=== PATIENT | male | born 1990 | race Caucasian/White ===

== ENCOUNTER 2018-11-16 18:53 | Emergency (ER) | payer SELFPAY ==
[~2018-11-16] VITALS: Ht 188 cm; Wt 56.8 kg
[2018-11-16 18:56] VITALS: Ht 188 cm; Wt 56.8 kg
[2018-11-16 19:17] LABS: BASOPHILS 0.1 % (0-2); EOSINOPHILS 0.4 % (0-7); HEMATOCRIT 42.7 % (42.0-54.0); HEMOGLOBIN 15.5 g/dL (13.5-17.5); IMMATURE GRANULOCYTES 0.3 % (0-5); LYMPHOCYTES 8.7 % (15-50); MCH 31.4 pg (26.0-34.0); MCHC 36.3 g/dL (31.0-37.0); MCV 86.6 fL (80.0-100.0); MEAN PLATELET VOLUME 10.3 fL (7.4-10.4); MONOCYTES 7.3 % (2-11); NEUTROPHILS 83.2 % (40-80); PLATELET COUNT 152 10x3/uL (130-400); RBC 4.93 10x6/uL (4.20-6.10); RDW 12.3 % (11.5-14.5); WBC 14.6 10x3/uL (4.8-10.8)
[2018-11-16 19:39] LABS: APPEARANCE CLEAR (CLEAR); BILIRUBIN NEGATIVE (NEGATIVE); COLOR YELLOW (YELLOW); GLUCOSE NEGATIVE (NEGATIVE); KETONE LARGE mg/dL (NEGATIVE); NITRITE NEGATIVE (NEGATIVE); PROTEIN TRACE mg/dL (NEGATIVE); SPECIFIC GRAVITY 1.015 (1.005-1.020); UROBILINOGEN NORMAL (NORMAL)
[2018-11-16 19:42] LABS: BACTERIA FEW /hpf (NONE SEEN); MUCUS >1+ /lpf (NONE SEEN); RED CELLS - URINE OCC /hpf (0-5); WHITE CELLS - URINE 0-5 /hpf (0-5)
[2018-11-16 19:56] LABS: ALBUMIN 4.1 g/dL (3.4-5.0); ALKALINE PHOSPHATASE 63 U/L (46-116); ALT (SGPT) 12 U/L (10-68); BILIRUBIN - TOTAL 1.42 mg/dL (0.2-1.3); CALC OSMOLALITY 282 mosm/kg (275-300); CALCIUM 8.9 mg/dL (8.5-10.1); CHLORIDE - SERUM 103 mmol/L (98-107); CREATININE - SERUM 1.2 mg/dL (0.6-1.3); GLUCOSE 112 mg/dL (74-106); POTASSIUM - SERUM 3.4 mmol/L (3.5-5.1); PROTEIN - SERUM 7.7 g/dL (6.4-8.2); SODIUM 142 mmol/L (136-145); UREA NITROGEN 10 mg/dL (7-18); eGFR NON AFRICAN AMERICAN 78 mL/min (90-120)
[2018-11-16] MEDS ORDERED: ZOFRAN ODT4 MG/UDTAB PO (20:05)
[2018-11-16 20:06] LABS: LIPASE 70 U/L (73-393); MAGNESIUM - SERUM 1.6 mg/dL (1.8-2.4); THYROID STIMULATING HORMONE 1.19 uIU/mL (0.36-3.74)
[2018-11-16 20:14] LABS: UDS - AMPHET NEGATIVE QUAL (NEGATIVE); UDS - BARB NEGATIVE QUAL (NEGATIVE); UDS - BENZO NEGATIVE QUAL (NEGATIVE); UDS - COCAINE NEGATIVE QUAL (NEGATIVE); UDS - OPIATE NEGATIVE QUAL (NEGATIVE); UDS - PCP NEGATIVE QUAL (NEGATIVE); UDS - THC POSITIVE QUAL (NEGATIVE)
[2018-11-16 21:24] VITALS: BP 127/67
== END 2018-11-16 21:25 | disposition home or self-care (01) ==
LOC: D.ER 18:53
PROVIDERS: Family Medicine
DX: R11.2 Nausea with vomiting, unspecified (principal)

== ENCOUNTER 2019-01-25 00:38 | Emergency (ER) | payer MEDICAID ==
[~2019-01-25] VITALS: Ht 188 cm; Wt 56.7 kg
[~2019-01-25 00:38] MED LIST: ZOFRAN ODT4 MG/UDTAB PO
[2019-01-25 00:50] VITALS: Ht 188 cm; Wt 56.7 kg
[2019-01-25 01:55] LABS: BASOPHILS 0.3 % (0-2); EOSINOPHILS 0.2 % (0-7); HEMATOCRIT 42.6 % (42.0-54.0); HEMOGLOBIN 14.5 g/dL (13.5-17.5); IMMATURE GRANULOCYTES 0.2 % (0-5); LYMPHOCYTES 9.2 % (15-50); MCH 30.4 pg (26.0-34.0); MCV 89.3 fL (80.0-100.0); MEAN PLATELET VOLUME 10.8 fL (7.4-10.4); MONOCYTES 10.8 % (2-11); NEUTROPHILS 79.3 % (40-80); PLATELET COUNT 152 10x3/uL (130-400); RBC 4.77 10x6/uL (4.20-6.10); RDW 12.3 % (11.5-14.5); WBC 6.3 10x3/uL (4.8-10.8)
[2019-01-25 02:01] LABS: CALC OSMOLALITY 276 mosm/kg (275-300); CARBON DIOXIDE 24.7 mmol/L (21.0-32.0); CHLORIDE - SERUM 104 mmol/L (98-107); GLUCOSE 104 mg/dL (74-106); POTASSIUM - SERUM 3.7 mmol/L (3.5-5.1); SODIUM 140 mmol/L (136-145); UREA NITROGEN 8 mg/dL (7-18); eGFR NON AFRICAN AMERICAN > 90 mL/min (90-120)
[2019-01-25 02:08] LABS: ALBUMIN 4.1 g/dL (3.4-5.0); ALKALINE PHOSPHATASE 60 U/L (46-116); ALT (SGPT) 15 U/L (10-68); AMYLASE - SERUM 129 U/L (25-115); BILIRUBIN - TOTAL 0.69 mg/dL (0.2-1.3); LIPASE 269 U/L (73-393); PROTEIN - SERUM 7.8 g/dL (6.4-8.2); TROPONIN-I < 0.017 ng/mL (0.000-0.060)
[2019-01-25] MEDS ORDERED: KEFLEX500 MG PO (03:50)
[2019-01-25] MEDS ORDERED: MEDROL DOSE PACK4 MG PO (03:51)
[2019-01-25 04:04] VITALS: BP 122/87
== END 2019-01-25 04:07 | disposition home or self-care (01) ==
LOC: D.ER 00:38
PROVIDERS: Family Medicine
DX: J02.0 Streptococcal pharyngitis (principal); R10.9 Unspecified abdominal pain; R53.1 Weakness; R53.83 Other fatigue; R51 Headache